=== PATIENT | female | born 1985 | race Asian ===

== ENCOUNTER 2019-07-26 12:04 | Outpatient (CLI) | payer OTHER ==
[2019-07-26 12:46] LABS: HCG UR QUAL POSITIVE
== END 2019-07-26 12:05 | disposition home or self-care (01) ==
LOC: LAB 12:04
PROVIDERS: ATTEND Physician Assistant Medical
DX: Z32.00 Encounter for pregnancy test, result unknown (principal)
CPT/HCPCS: 81025

== ENCOUNTER 2021-12-10 11:08 | Outpatient (CLI) | payer OTHER ==
[2021-12-10 17:54] LABS: CALCIUM 9.2 mg/dL (8.5-10.3); CREATININE 0.9 mg/dL (0.4-1.0); POTASSIUM 3.7 mmol/L (3.5-5.0)
== END 2021-12-10 11:09 | disposition home or self-care (01) ==
LOC: LAB.N 11:08
PROVIDERS: ATTEND Family Medicine
DX: U07.1 COVID-19 (principal)
CPT/HCPCS: 36415; 80048